=== PATIENT | female | born 1980 | race Two or more races ===

== ENCOUNTER 2019-03-26 10:22 | Emergency (ER) | payer OTHER ==
[~2019-03-26] VITALS: Ht 167.6 cm; Wt 65.8 kg
== END 2019-03-26 11:52 | disposition home or self-care (01) ==
LOC: ER 10:22
DX: J03.90 Acute tonsillitis, unspecified (principal)

== ENCOUNTER 2021-04-25 10:24 | Emergency (ER) | payer OTHER ==
[~2021-04-25] VITALS: Ht 167.6 cm; Wt 75.3 kg
[2021-04-25] MEDS ORDERED: CIPRO500 MG PO (15:11)
== END 2021-04-25 16:25 | disposition home or self-care (01) ==
LOC: ER 10:24
DX: N39.0 Urinary tract infection, site not specified (principal); M54.50 Low back pain, unspecified

== ENCOUNTER 2024-01-23 15:15 | Emergency (ER) | payer OTHER ==
[~2024-01-23] VITALS: Ht 167.6 cm; Wt 71.2 kg
[~2024-01-23 15:15] MED LIST: CIPRO500 MG PO
[2024-01-23] MEDS ORDERED: METOCLOPRAMIDE HCL 5 MG/ML VIAL IM ONE (16:00)
[2024-01-23 16:46] LABS: HEMOGLOBIN 13.8 g/dL (12.0-15.00); MEAN CELL VOLUME 87.2 fL (80.00-100.00); MEAN CORPUSCULAR HEMOGLOBIN 30.2 pg (27.00-32.0); MEAN CORPUSCULAR HGB CONC 34.6 g/dl (32.0-36.0); PLATELET COUNT 249 K/uL (150-450); RED BLOOD COUNT 4.58 M/uL (4.00-6.00); RED CELL DISTRIBUTION WIDTH 13.3 % (11.5-14.5)
[2024-01-23 17:21] LABS: CALCIUM 9.2 mg/dL (8.5-10.1); CREATININE SERUM 0.64 mg/dL (0.55-1.02); GFR 100.35; POTASSIUM 3.93 mEq/L (3.5-5.1)
== END 2024-01-23 18:16 | disposition home or self-care (01) ==
LOC: ER 15:17
PROVIDERS: General Practice
DX: R42 Dizziness and giddiness (principal)